=== PATIENT | female | born 1945 | race Hispanic/Latino ===

== ENCOUNTER 2018-05-01 00:33 | Emergency (ER) | payer OTHER ==
[2018-05-01 01:41] LABS: Absolute Lymphocytes (CBC) 2.5 K/uL (0.7-4.9); Absolute Monocytes 0.7 K/uL (0.1-1.3); Absolute Neutrophil 5.8 K/uL (1.8-8.0); Basophils % 0.9 % (0-1.3); Eosinophils % 2.9 % (0-4.4); Hematocrit 33.2 % (36.0-45.0); Lymphocytes % 26.8 % (15.3-44.8); MPV 8.5 fL (7.6-11.3); Monocytes % 7.1 % (3.3-12.3)
[2018-05-01 01:48] LABS: Protime INR 0.97
[2018-05-01 01:59] LABS: ALT/SGPT 19 U/L (12-78); AST/SGOT 13 U/L (15-37); Alkaline Phosphatase 84 U/L (45-117); BUN Blood Urea Nitrogen 43 mg/dL (7-18); Bicarbonate 22 mmol/L (21-32); Bilirubin Direct < 0.1 mg/dL (0-0.2); Bilirubin Total 0.3 mg/dL (0.2-1.0); Glucose Level 135 mg/dL (74-106); Magnesium 2.1 mg/dL (1.8-2.4); NT PRO-BNP 50 pg/mL (<125); Potassium 4.3 mmol/L (3.5-5.1); Protein, Total 6.5 g/dL (6.4-8.2); Sodium Level 144 mmol/L (136-145); Troponin (Emerg Dept Use Only) < 0.02 ng/mL (0.0-0.045)
[2018-05-01] MEDS ORDERED: FENTANYL CITR 100 MCG/2 ML ONE (02:04)
--- NOTE | 2018-05-01 03:01 | EDPHYS ---
Physician Documentation [facility] Name: Vilma Benavidez Age: 73 yrs Sex: Female : 1945 Arrival Date: 05/01/2018 Time: 00:38 Bed 8 Private MD: ED Physician Akash Suazo HPI: 05/01 02:41 This 73 yrs old Female presents to ER via EMS with complaints of Chest Pain. jr8 02:41 The patient or guardian reports chest pain that is located primarily in the substernal jr8 area. Onset: acutely, today. The pain does not radiate. Associated signs and symptoms: The patient has no apparent associated signs or symptoms. The chest pain is described as a pressure. Duration: The patient or guardian reports a single episode, that lasted 2 hour(s). Modifying factors: The symptoms are alleviated by nothing. the symptoms are aggravated by nothing. Severity of pain: At its worst the pain was moderate in the emergency department the pain has improved. The patient has experienced a previous episode. The patient has not recently seen a physician. Historical: - Allergies: 00:45 PENICILLINS; lp1 - Home Meds: 00:45 Unable to obtain [Active]; lp1 - PMHx: 00:45 Hypertension; Hyperlipidemia; Diabetes - IDDM; lp1 - PSHx: 00:45 ; Arm surgery; lp1 - Immunization history:: Adult Immunizations up to date. - Social history:: Smoking status: Patient/guardian denies using tobacco. - Ebola Screening: : No symptoms or risks identified at this time. ROS: 02:41 Eyes: Negative for injury, pain, redness, and discharge, ENT: Negative for injury, jr8 pain, and discharge, Neck: Negative for injury, pain, and swelling, Respiratory: Negative for shortness of breath, cough, wheezing, and pleuritic chest pain, Abdomen/GI: Negative for abdominal pain, nausea, vomiting, diarrhea, and constipation, Back: Negative for injury and pain, MS/Extremity: Negative for injury and deformity, Skin: Negative for injury, rash, and discoloration, Neuro: Negative for headache, weakness, numbness, tingling, and seizure. 02:41 Cardiovascular: Positive for chest pain, Negative for edema, orthopnea, palpitations, paroxysmal nocturnal dyspnea. Exam: 02:41 Eyes: Pupils equal round and reactive to light, extra-ocular motions intact. Lids and jr8 lashes normal. Conjunctiva and sclera are non-icteric and not injected. Cornea within normal limits. Periorbital areas with no swelling, redness, or edema. ENT: Nares patent. No nasal discharge, no septal abnormalities noted. Tympanic membranes are normal and external auditory canals are clear. Oropharynx with no redness, swelling, or masses, exudates, or evidence of obstruction, uvula midline. Mucous membranes moist. Neck: Trachea midline, no thyromegaly or masses palpated, and no cervical lymphadenopathy. Supple, full range of motion without nuchal rigidity, or vertebral point tenderness. No Meningismus. Chest/axilla: Normal chest wall appearance and motion. Nontender with no deformity. No lesions are appreciated. Cardiovascular: Regular rate and rhythm with a normal S1 and S2. No gallops, murmurs, or rubs. Normal PMI, no JVD. No pulse deficits. Respiratory: Lungs have equal breath sounds bilaterally, clear to auscultation and percussion. No rales, rhonchi or wheezes noted. No increased work of breathing, no retractions or nasal flaring. Abdomen/GI: Soft, non-tender, with normal bowel sounds. No distension or tympany. No guarding or rebound. No evidence of tenderness throughout. Back: No spinal tenderness. No costovertebral tenderness. Full range of motion. Skin: Warm, dry with normal turgor. Normal color with no rashes, no lesions, and no evidence of cellulitis. MS/ Extremity: Pulses equal, no cyanosis. Neurovascular intact. Full, normal range of motion. Neuro: Awake and alert, GCS 15, oriented to person, place, time, and situation. Cranial nerves II-XII grossly intact. Motor strength 5/5 in all extremities. Sensory grossly intact. Cerebellar exam normal. Normal gait. Vital Signs: 00:43 BP 143 / 54; Pulse 74; Resp 18; Temp 97.3(TE); Pulse Ox 100% on R/A; Weight 74.84 kg; lp1 Height 5 ft. 4 in. (162.56 cm); Pain 5/10; 03:18 BP 120 / 51; Pulse 67; Resp 17; Pulse Ox 98% on R/A; tl2 00:43 Body Mass Index 28.32 (74.84 kg, 162.56 cm) lp1 MDM: 01:24 Patient medically screened. jr8 02:41 The patient was not given aspirin in the Emergency Department. Administered by EMS. jr8 Data reviewed: vital signs, nurses notes, lab test result(s), EKG, radiologic studies, plain films. Data interpreted: Pulse oximetry: on room air is 100 %. Interpretation: normal. Counseling: I had a detailed discussion with the patient and/or guardian regarding: the historical points, exam findings, and any diagnostic results supporting the discharge/admit diagnosis, lab results, radiology results. 02:59 ED course: Patient currently without pain. Feels much better. Does not want to stay for jr8 observation and trending of cardiac enzymes. 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 Discussed with her and her daughter that if anything were to worsen or change to come back . 05/01 01:24 Order name: Basic Metabolic Panel; Complete Time: 02:17 05/01 01:24 Order name: CBC with Diff; Complete Time: 01:47 05/01 01:24 Order name: LFT's; Complete Time: 02:17 05/01 01:24 Order name: Magnesium; Complete Time: 02:17 05/01 01:24 Order name: NT PRO-BNP; Complete Time: 02:17 05/01 01:24 Order name: PT-INR; Complete Time: 01:50 05/01 01:24 Order name: Troponin (emerg Dept Use Only); Complete Time: 02:17 05/01 01:24 Order name: XRAY Chest (1 view) 05/01 01:24 Order name: EKG; Complete Time: 01:24 05/01 01:24 Order name: Cardiac monitoring; Complete Time: 01:37 05/01 01:24 Order name: EKG - Nurse/Tech; Complete Time: 01:37 05/01 01:24 Order name: IV Saline Lock; Complete Time: 01:38 05/01 01:24 Order name: Labs collected and sent; Complete Time: 01:38 05/01 01:24 Order name: O2 Per Protocol; Complete Time: 01:38 05/01 01:24 Order name: O2 Sat Monitoring; Complete Time: 01:38 gs Administered Medications: 01:58 Not Given (BP 122/78 HR 62): Nitroglycerin 0.4 mg Sublingual once lp1 01:59 Drug: fentaNYL (PF) 25 mcg Route: IVP; Site: left antecubital; lp1 03:20 Follow up: Response: No adverse reaction; Pain is decreased tl2 Disposition: 03:22 Co-signature as Attending Physician, Akash Suazo MD. Disposition: 05/01/18 03:01 Discharged to Home. Impression: Chest pain, unspecified. - Condition is Stable. - Discharge Instructions: Nonspecific Chest Pain, Aspirin and Your Heart, Chest Pain Observation. - Medication Reconciliation Form, Thank You Letter, Antibiotic Education, Prescription Opioid Use form. - Follow up: Private Physician; When: 2 - 3 days; Reason: Recheck today's complaints, Continuance of care, Re-evaluation by your physician. - Problem is new. - Symptoms are resolved. Signatures: Dispatcher [employer] EDMS Laurie Chandler RN RN lp1 Behzad Orozco PA PA 8 Coco Elena RN RN tl2 Akash Suazo MD MD Corrections: (The following items were deleted from the chart) 03:20 03:01 05/01/2018 03:01 Discharged to Home. Impression: Chest pain, unspecified. tl2 Condition is Stable. Forms are Medication Reconciliation Form, Thank You Letter, Antibiotic Education, Prescription Opioid Use. Follow up: Private Physician; When: 2 - 3 days; Reason: Recheck today's complaints, Continuance of care, Re-evaluation by your physician. Problem is new. Symptoms are resolved. jr8
--- NOTE | 2018-05-01 03:01 | ER ---
Nurse's Notes [facility] Name: Vilma Benavidez Age: 73 yrs Sex: Female : 1945 Arrival Date: 05/01/2018 Time: 00:38 Bed 8 Private MD: Diagnosis: Chest pain, unspecified Presentation: 05/01 00:39 Presenting complaint: EMS states: Shortness of breath, chest pain that began suddenly lp1 about 20 min prior to calling EMS; Family states talking about patient's who had recently when patient began having chest pain and difficulty breathing; Vitals WNL per EMS. Transition of care: patient was not received from another setting of care. Onset of symptoms was May 01, 2018. Risk Assessment: Do you want to hurt yourself or someone else? Patient reports no desire to harm self or others. Initial Sepsis Screen: Does the patient meet any 2 criteria? No. Patient's initial sepsis screen is negative. Does the patient have a suspected source of infection? No. Patient's initial sepsis screen is negative. Care prior to arrival: Medication(s) given: ASA, 324 mg IV initiated. 20 GA, in the left antecubital area, Glucose check: 130. 00:39 Method Of Arrival: EMS: [facility] lp1 00:39 Acuity: OLVIN 3 lp1 Historical: - Allergies: 00:45 PENICILLINS; lp1 - Home Meds: 00:45 Unable to obtain [Active]; lp1 - PMHx: 00:45 Hypertension; Hyperlipidemia; Diabetes - IDDM; lp1 - PSHx: 00:45 ; Arm surgery; lp1 - Immunization history:: Adult Immunizations up to date. - Social history:: Smoking status: Patient/guardian denies using tobacco. - Ebola Screening: : No symptoms or risks identified at this time. Screenin:47 Abuse screen: Denies threats or abuse. Denies injuries from another. Nutritional lp1 screening: No deficits noted. Tuberculosis screening: No symptoms or risk factors identified. Fall Risk None identified. Assessment: 00:45 General: Appears in no apparent distress. Behavior is calm, cooperative, appropriate lp1 for age. Pain: Complains of pain in chest Pain does not radiate. Pain currently is 5 out of 10 on a pain scale. Quality of pain is described as sharp, Pain began suddenly. Neuro: Level of Consciousness is awake, alert, obeys commands, Oriented to person, place, time, situation. Cardiovascular: Patient's skin is warm and dry. Respiratory: Respiratory effort is even, unlabored, Respiratory pattern is regular, Breath sounds are clear bilaterally. GI: No signs and/or symptoms were reported involving the gastrointestinal system. : No signs and/or symptoms were reported regarding the genitourinary system. EENT: No signs and/or symptoms were reported regarding the EENT system. Derm: Skin is pink, warm \T\ dry. Musculoskeletal: Circulation, motion, and sensation intact. 02:00 Reassessment: Patient is alert, oriented x 3, equal unlabored respirations, skin lp1 warm/dry/pink. Patient states feeling better. Patient states symptoms have improved. 03:18 Reassessment: Patient appears in no apparent distress at this time. Patient and/or tl2 family updated on plan of care and expected duration. Pain level reassessed. Patient is alert, oriented x 3, equal unlabored respirations, skin warm/dry/pink. pt verbalized understanding of discharge instructions, need for follow up Patient states feeling better. Vital Signs: 00:43 BP 143 / 54; Pulse 74; Resp 18; Temp 97.3(TE); Pulse Ox 100% on R/A; Weight 74.84 kg; lp1 Height 5 ft. 4 in. (162.56 cm); Pain 5/10; 03:18 BP 120 / 51; Pulse 67; Resp 17; Pulse Ox 98% on R/A; tl2 00:43 Body Mass Index 28.32 (74.84 kg, 162.56 cm) lp1 ED Course: 00:38 Patient arrived in ED. al2 00:39 Laurie Chandler, RN is Primary Nurse. lp1 00:43 Triage completed. lp1 00:44 Arm band placed on right wrist. lp1 00:48 Patient has correct armband on for positive identification. Placed in gown. Bed in low lp1 position. Call light in reach. groundwater monitoring technician on. Pulse ox on. NIBP on. 00:48 Patient maintains SpO2 saturation greater than 95% on room air. lp1 01:24 Behzad Orozco PA is PHCP. jr8 01:24 Akash Suazo MD is Attending Physician. jr8 01:36 Initial lab(s) drawn, by me, sent to lab. Maintain EMS IV. Dressing intact. Good blood lp1 return noted. Site clean \T\ dry. Gauge \T\ site: 20 g to L AC. 01:37 X-ray completed. Portable x-ray completed in exam room. Patient tolerated procedure kw well. 01:39 XRAY Chest (1 view) In Process Unspecified. EDMS 03:18 No provider procedures requiring assistance completed. IV discontinued, intact, tl2 bleeding controlled, No redness/swelling at site. Pressure dressing applied. Administered Medications: 01:58 Not Given (BP 122/78 HR 62): Nitroglycerin 0.4 mg Sublingual once lp1 01:59 Drug: fentaNYL (PF) 25 mcg Route: IVP; Site: left antecubital; lp1 03:20 Follow up: Response: No adverse reaction; Pain is decreased tl2 Outcome: 03:01 Discharge ordered by . jr8 03:18 Discharged to home ambulatory, with family. tl2 03:18 Condition: stable 03:18 Discharge instructions given to patient, family, Instructed on discharge instructions, follow up and referral plans. Demonstrated understanding of instructions, follow-up care. 03:20 Patient left the ED. tl2 Signatures: Dispatcher [employer] EDMS Anum Ernandez Laura, RN RN lp1 Behzad Orozco PA PA jr8 Coco Elena RN RN tl2 Mervat Leger2
--- NOTE | 2018-05-01 07:37 | EKG ---
Test Date: 2018-05-01 Test Time: 01:18:25 Business Risk Analyst: HERNANDO MEASUREMENT RESULTS: Intervals: Rate: 68 MI: 150 QRSD: 98 QT: 418 QTc: 444 [place]: P: 31 MI: 150 QRS: -7 T: 36 INTERPRETIVE STATEMENTS: Normal sinus rhythm Normal ECG Compared to ECG 08/17/2012 21:45:44 No significant changes Electronically Signed On 05-01-18 07:36:28 [employer]ACECAR DRIVER by Arun Fonseca
--- NOTE | 2018-05-01 10:14 | RAD REPORT ---
EXAM DESCRIPTION: RAD - Chest Single View - 05/01/2018 1:41 am CLINICAL HISTORY: CHEST PAIN Chest pain. COMPARISON: CHEST SINGLE VIEW dated 08/17/2012; CHEST PA AND LAT 2 VIEW dated 07/11/2012 FINDINGS: Portable technique limits examination quality. The lungs are grossly clear. The heart is normal in size. No displaced fractures. IMPRESSION: No acute intrathoracic process suspected.
== END 2018-05-01 03:20 | disposition home or self-care (01) ==
LOC: ER 00:33
DX: R07.9 Chest pain, unspecified (principal); I10 Essential (primary) hypertension; Z88.0 Allergy status to penicillin
CPT/HCPCS: 36415; 71045; 80048; 80076; 83735; 83880; 84484; 85025; 85610; 93005; 96374; 99285; J3010